=== PATIENT | male | born 1955 | race Caucasian/White ===

== ENCOUNTER 2016-11-12 07:36 | Day surgery (SDC) | payer BC ==
[2016-11-12] MEDS ORDERED: DEXAMETHASONE PRESERVATIVE FREE 10MG/ML VIAL IV ONE (12:14)
[2016-11-12] MEDS ORDERED: LIDOCAINE 1% W/EPI 1:200,000 MPF 30ML SQ ONE (12:14)
[2016-11-12] MEDS ORDERED: BUPIVACAINE 0.5% W/EPI MPF 30 ML VIAL IVP ONE (12:14)
[2016-11-12] MEDS ORDERED: PROPOFOL 10 MG/ML VIAL IV ONE (14:57)
[2016-11-12] MEDS ORDERED: FENTANYL PF 100MCG/2ML VIAL IV ONE (14:57)
[2016-11-12] MEDS ORDERED: *PACU ONLY* KETAMINE HCL 10 MG/ML (20ML) VIAL IV ONE (14:57)
[2016-11-12] MEDS ORDERED: MIDAZOLAM HCL 2MG/2ML VIAL IV ONE (14:57)
--- NOTE | 2016-11-13 15:17 | Operative Note - Ferro ---
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 OPERATION: RADIOFREQUENCY RHIZOTOMY LEFT CERVICAL FACETS 1/2, 2/3, AND 3 /4. SURGEON: FRANKY ROMERO D.O. ANESTHESIA: LOCAL SEDATION. ANESTHESIA PROVIDER: CELE TELLO CRNA. INDICATION: This patient presents with head and neck pain. Examination shows tenderness in the cervical spine. Range of motion causing pain in the neck with extension. Diagnostics show multiple levels of spondylosis. A facet and rhizotomy series has resulted in extensive pain control. He is here for repeat rhizotomy. PROCEDURE: Intravenous line, vital sign monitoring, IV sedation, prepped, draped, sterile technique. The cervical facet levels at 1/2, 2/3, and 3/4 on the left were marked, infiltrated, and a 22-gauge rhizotomy cannula positioned. Stimulation trials conducted. Rhizotomy burn performed. Local with anti- inflammatory into the sites. Topical antibiotics. Sterile dressing applied. We will monitor and evaluate. FRANKY ROMERO D.O. Date & Time cc: Dr. Thomson JOB NUMBER: [id number] [facility]
== END 2016-11-12 09:48 | disposition home or self-care (01) ==
LOC: SUR 07:36
PROVIDERS: ATTEND Pain Medicine Interventional Pain Medicine
DX: M47.812 Spondylosis without myelopathy or radiculopathy, cervical region (principal)
CPT/HCPCS: 64633; 64634 ×2; 01936; J1100; J3010

== ENCOUNTER 2017-05-13 08:55 | Day surgery (SDC) | payer BC ==
--- NOTE | 2017-05-13 06:41 | History and Physical Report ---
DATE: 05/12/2017. CHIEF COMPLAINT AND HISTORY OF CHIEF COMPLAINT: This patient presents with a history of occipital headaches unresponsive to all conservative therapies. He is here for a trial of peripheral nerve stimulation of the occipitals to determine if the implantation can be of any success. His trial will be a modified implanted trial. We will make incisions and anchor the system but externalize the leads for future generator placement if successful. PAST MEDICAL HISTORY: Asthmatic bronchitis. MEDICATIONS ON ADMISSION: To be provided. REVIEW OF SYSTEMS: The patient is appropriate and in no acute distress. The remainder of the systems review shows headaches, glasses, asthma, reflux. SOCIAL HISTORY: Smoking, caffeine. FAMILY HISTORY: Asthma, coronary artery disease, hypertension. SURGICAL HISTORY: To be provided. ALLERGIES: Environmental. PHYSICAL EXAMINATION: General: Height is 5 feet, 8 inches. Weight is 200 pounds. Vital Signs: Unavailable. HEENT: Within normal limits. Lungs: Clear. Heart: Regular rate and rhythm. Abdomen: Nontender. Musculoskeletal: Examination of the musculoskeletal system shows the primary pain to be headaches and running equally and symmetrically along the suboccipital rim, left and right, moving to the midline or occipital protuberance to the posterior auricular area. The findings are quite consistent with occipital neuralgia. Neurologic: Cranial nerves are intact. IMPRESSION: HEADACHES WITH OCCIPITAL NEURALGIA, ICD-10 CODE M54.81. PLAN: The patient is here for an implanted peripheral nerve stimulator trial to determine if a full implant can be effective in controlling his headaches along the suboccipital rim. The patient understands the risks, side effects, and potential complications. There will be an incision with the two leads anchored. If the trial is unsuccessful, the incision will need to be opened and the two leads removed. If successful, he will return in 10 to 14 days for removal of the external connections and diversion of the internal leads to a generator at the posterior gluteal margin. Potential risks and side effects have all been discussed and related in detail. The patient agrees and has consented. FRANKY ROMERO D.O. Date & Time JOB NUMBER: [id number] cc: Pradip Puente
[~2017-05-13 08:55] MED LIST: ACETAMINOPHEN 1,000 MG/100 ML BTL IV ONE; CEFAZOLIN 2 Gram 2 GM/50 ML BAG IVPB ONE; FAMOTIDINE 20MG TABLET PO ONE; MECLIZINE 25 MG TABLET PO ONE; METOCLOPRAMIDE 10 MG TABLET PO ONE
[2017-05-13] MEDS ORDERED: LABETALOL HCL 5MG/ML, 20ML VIAL IVPB ONE (15:12)
[2017-05-13] MEDS ORDERED: FENTANYL PF 100MCG/2ML VIAL IV ONE (15:12)
[2017-05-13] MEDS ORDERED: HYDROMORPHONE HCL 2 MG/ML VIAL IV ONE (15:12)
[2017-05-13] MEDS ORDERED: HYDRALAZINE 20MG/ML VIAL IV ONE (15:12)
[2017-05-13] MEDS ORDERED: MIDAZOLAM HCL 2MG/2ML VIAL IV ONE (15:12)
[2017-05-13] MEDS ORDERED: BUPIVACAINE 0.5% W/EPI MPF 30 ML VIAL IVP ONE (15:26)
[2017-05-13] MEDS ORDERED: LIDOCAINE 1% W/EPI 1:200,000 MPF 30ML SQ ONE (15:26)
[2017-05-13] MEDS ORDERED: CEFAZOLIN 1G VIAL IM ONE (15:26)
--- NOTE | 2017-05-13 16:47 | Operative Note - Ferro ---
DATE OF SURGERY: 05/13/17 PREOPERATIVE DIAGNOSIS: HEADACHES WITH OCCIPITAL NEURALGIA, ICD-10 CODE = M54.81. OPERATION: 1. FLUOROSCOPICALLY-GUIDED PLACEMENT OF LEFT PERIPHERAL NERVE STIMULATOR FOR CONTROL OF OCCIPITAL NERVE [employer] OCTAPOLAR 8 ELECTRODES INSERTED MIDLINE DIRECTED LEFT LATERAL SUBOCCIPITAL RIM. 2. FLUOROSCOPICALLY-GUIDED PLACEMENT OF RIGHT PERIPHERAL NERVE STIMULATOR FOR OCCIPITAL NERVE [employer] OCTAPOLAR WITH 8 ELECTRODES INSERTED MIDLINE DIRECTED RIGHT LATERAL SUBOCCIPITAL RIM. 3. COMPLEX PROGRAMMING LEAD 1 OVER 20 MINUTES FOLLOWED BY COMPLEX PROGRAMMING LEAD 2 OVER 20 MINUTES. 4. PURSESTRING SUTURE, BENZOIN, STERI-STRIPS, OPSITE SECURING EXTERNAL PORTION OF LEADS TO THE PATIENT'S NECK. 6. COMPLEX PROGRAMMING RECOVERY ROOM TWO PERIPHERAL NERVE STIMULATORS, 20 MINUTES. SURGEON: FRANKY ROMERO D.O. ANESTHESIA: LOCAL SEDATION. ANESTHESIA PROVIDER: WALKER HILL CRNA. INDICATION: This patient presents with intractable headaches of the occipital nervous system to the back and upper side of his head. He is here for a peripheral nerve stimulator trial for the occipital nerve to determine if the implantation of a permanent system can be of any value in pain control. PROCEDURE: Intravenous line, vital sign monitoring, IV sedation, prepped and draped in sterile technique. Patient position prone. Sterile prep. Sterile technique. At the midline, skin infiltrated then two curved epidural needles under imaging were inserted subcutaneously and directed first to left curving across and along the suboccipital rim towards the left mastoid. A second curved epidural needle was then positioned inserting at the midline below the first insertion curved along subcutaneous tissues right along the suboccipital rim. On the left, peripheral nerve stimulator lead 1, a [employer] Octapolar with 8 electrodes, was inserted through the needle and needle removed. With the needle directed to the right, a second [employer] Octapolar with 8 electrodes was inserted through the needle, the needle removed with the lead remaining subcutaneously along the suboccipital rim. Complex programming of lead 1 over 20 minutes followed by complex programming of lead 2 over 20 minutes ultimately resulting in patterns of stimulation into the occipital nervous system, which is moving along the posterior left and right quadrants of the occipital region; patient indicating we had the occipital component but not the upper component of his headaches. Skin infiltrated then a pursestring suture of nylon was used to secure each of the two leads to patient's skin. Benzoin, Steri-Strips, and OPSITE dressing was then used to secure the leads to patient's back of head. He was then transported to the Recovery Room stable showing no side-effects from the procedure or the sedation. In the Recovery Room , complex programming over 20 minutes performed re-establishing stimulation and pain control to all of the appropriate areas. The patient was instructed on the use of the system, for the information error messaging, and prepared for discharge. DISCHARGE INSTRUCTIONS IN THE MORNIN. The sites to remain clean and dry. No showering or bathing in any way that would disrupt dressings. If it happens, contact the clinic. 2. Standard medications resumed, including Levaquin, the antibiotic, 500 mg once a day for 14 days. 3. The trial will run seven days. During this period of time, we will evaluate pain control relative to his headaches. At the end of the seven day period, if successful, the trial leads removed and he will be scheduled for permanent implant. He should analgesics to more fully evaluate the system and its ability to control his headaches. All other instructions were provided, numbers to contact, problems given. He will be seen in the office for reprogramming. cc: Dr. Thomson JOB NUMBER: [id number] MTDD
--- NOTE | 2017-05-14 07:33 | RADIOLOGY REPORT ---
EXAM: CERVICAL SPINE HISTORY: STIMULATOR PLACEMENT. TECHNIQUE: A single portable supine view of the cervical spine was performed. FINDINGS: Stimulator device projects over the cervical spine and lead tips appear to be below the skull base. IMPRESSION: STIMULATOR DEVICE PROJECTS OVER THE CERVICAL SPINE. LEAD TIPS APPEAR TO BE OVERLYING THE SKULL BASE. JOB NUMBER: [id number] MTDD
== END 2017-05-13 14:00 | disposition home or self-care (01) ==
LOC: SUR 08:55
PROVIDERS: ATTEND Pain Medicine Interventional Pain Medicine
DX: M54.81 Occipital neuralgia (principal); F17.200 Nicotine dependence, unspecified, uncomplicated; J45.909 Unspecified asthma, uncomplicated
CPT/HCPCS: 64555; 64575; 00300; 72020; J3010; J1170; J0690

== ENCOUNTER 2017-05-27 10:57 | Day surgery (SDC) | payer BC ==
--- NOTE | 2017-05-27 06:55 | History and Physical Report ---
DATE: 05/27/2017. CHIEF COMPLAINT AND HISTORY OF CHIEF COMPLAINT: This patient presents with a history of an intractable occipital headache pattern. On 05/13/2017 a peripheral nerve stimulator trial was performed to control the occipital nerve tracts with greater than 75 percent pain control of the headache. Due to the failure of all therapy, he is here by his request for implantation of a permanent system. PAST MEDICAL HISTORY: Intractable headaches, asthmatic bronchitis. PAST SURGICAL HISTORY: To be provided. MEDICATIONS ON ADMISSION: To be provided. ALLERGIES: Environmental. Although she has sensitivities to codeine, Percocet , and Vicodin. REVIEW OF SYSTEMS: The patient is appropriate and in no acute distress. The remainder of the systems review shows headaches, glasses, asthma, reflux. SOCIAL HISTORY: Smoking, caffeine. FAMILY HISTORY: Asthma, coronary artery disease, hypertension. PHYSICAL EXAMINATION: General: Height is 5 feet, 8 inches. Weight is 220 pounds. Vital Signs: Not available. HEENT: Within normal limits. Lungs: Clear. Heart: Regular rate and rhythm. Abdomen: Nontender. Musculoskeletal: Examination of the musculoskeletal system shows the area of headaches to start at the suboccipital rim and extend toward the auricular regions laterally and toward the superior aspect of the head. Sensory ferreira are intact. Neurologic: Cranial nerves are intact. IMPRESSION: OCCIPITAL NEURALGIA WITH HEADACHES, ICD-10 CODE M54.81. PLAN: This patient is here for permanent implantation of a peripheral nerve stimulator based upon a successful trial. The potential risks, side effects, and complications have been carefully reviewed and discussed including infections and failure. The patient understands and agrees. The procedure will be considered outpatient, although an overnight stay will be evaluated. FRANKY ROMERO D.O. Date & Time JOB NUMBER: [id number] cc: Pradip Puente
[2017-05-27] MEDS ORDERED: BUPIVACAINE 0.5% W/EPI MPF 30 ML VIAL IVP ONE (14:00)
[2017-05-27] MEDS ORDERED: LIDOCAINE 1% W/EPI 1:200,000 MPF 30ML SQ ONE (14:00)
[2017-05-27] MEDS ORDERED: CEFAZOLIN 1G VIAL IM ONE (14:00)
[2017-05-27] MEDS ORDERED: ACETAMINOPHEN 325 MG TAB PO PRN ×2 (16:06)
[2017-05-27] MEDS ORDERED: HYDROMORPHONE HCL 2 MG/ML VIAL IM PRN (16:06)
[2017-05-27] MEDS ORDERED: AL HYDROX/MAG HYDROX 30ML UD PO PRN (16:06)
[2017-05-27] MEDS ORDERED: METOCLOPRAMIDE 10 MG TABLET PO PRN (16:06)
[2017-05-27] MEDS ORDERED: METOCLOPRAMIDE HCL 10 MG/2 ML VIAL IVP PRN (16:06)
[2017-05-27] MEDS ORDERED: DIPHENHYDRAMINE HCL 25 MG CAPSULE PO PRN ×2 (16:06)
[2017-05-27] MEDS ORDERED: DIPHENHYDRAMINE HCL IV 50 MG/ML VIAL IVP PRN ×2 (16:06)
[2017-05-27] MEDS ORDERED: TEMAZEPAM 15 MG CAPSULE PO PRN ×2 (16:06)
[2017-05-27] MEDS ORDERED: HYDROCODONE/APAP 7.5/325MG TABLET PO PRN ×2 (16:06)
[2017-05-27] MEDS ORDERED: SENNOSIDES/DOCUSATE SODIUM UD CAPSULE PO PRN ×2 (16:06)
[2017-05-27] MEDS ORDERED: HYDROMORPHONE HCL 1 MG/ML CPJ IM PRN (16:06)
[2017-05-27] MEDS ORDERED: LIDOCAINE 2% MDV (20MG/ML) 20ML VIAL IV ONE (16:28)
[2017-05-27] MEDS ORDERED: MIDAZOLAM HCL 2MG/2ML VIAL IV ONE (16:28)
[2017-05-27] MEDS ORDERED: FENTANYL PF 100MCG/2ML VIAL IV ONE (16:28)
[2017-05-27] MEDS ORDERED: PROPOFOL 10 MG/ML VIAL IV ONE (16:28)
[2017-05-27] MEDS ORDERED: CEFAZOLIN 2 Gram 2 GM/50 ML BAG IVPB SCH (21:30)
[2017-05-27] MEDS ORDERED: 0.9 % SODIUM CHLORIDE 10ML SYR IVP SCH (22:00)
--- NOTE | 2017-05-28 08:13 | Operative Note - Ferro ---
DATE OF SURGERY: 05/27/2017. PREOPERATIVE DIAGNOSIS: OCCIPITAL NEURALGIA WITH HEADACHES, ICD-10 CODE M54.81. POSTOPERATIVE DIAGNOSIS: OCCIPITAL NEURALGIA WITH HEADACHES, ICD-10 CODE M54.81. OPERATION: 1. Fluoroscopically guided placement of left peripheral nerve stimulator for occipital nerve lead 1, [employer] Octapolar with 8 electrodes positioned left oblique to the suboccipital rim. 2. Fluoroscopically guided placement of right peripheral nerve stimulator for occipital nerve lead 2, [employer] Octapolar with 8 electrodes positioned right oblique to the suboccipital rim. 3. Complex programming of peripheral nerve stimulator lead 1 for 20 minutes. Complex programming of peripheral nerve stimulator lead 2 for 20 minutes. 4. Incision, subcutaneous dissection, and anchoring of lead 1 and lead 2 to the supraspinous and posterior cervical fascia. 5. Incision, subcutaneous dissection, and creation of subcutaneous pouch at right flank above the belt line, a site picked by the patient. 6. Tunneling between cervical posterior incision and posterior gluteal flank incision with intermediate incision. Placement of lead 1 and lead 2 into flank pouch, each lead interfaced directly to the generator identified as a [employer] programmable rechargeable internal pulse generator. 7. Securing generator to posterior fascia using nonabsorbable suture and closure of all incisions with Vicryl to the fascia and subcuticular Vicryl for the skin. Dermabond closure. 8. Complex programming of the internal generator to peripheral stimulators use for home for 20 minutes. SURGEON: Mike Jon D.O. ANESTHESIA: Local sedation. ANESTHESIA PROVIDER: Phillip Lopez CRNA INDICATION: This patient presents with a history of intractable headaches considered to be related to the occipital nerve. A peripheral nerve stimulator trial resulted in 75 to 80 percent control of headaches. Due to the failure of all therapies and the success of the peripheral nerve stimulator trial in controlling the occipital nervous system, he is here for permanent implant. PROCEDURE: Intravenous line, vital sign monitoring, and intravenous sedation by Anesthesia. The patient was positioned prone. Sterile prep, sterile technique, and under imaging. Consistent with the trial, the skin along the mid posterior cervical spine was infiltrated. An incision was made and subcutaneous dissection was conducted to the supraspinous fascia and the deep cervical spine fascia. Two curved epidural needles were positioned subcutaneously, directed by an oblique angle to the suboccipital rim and slightly lateral toward the mastoid, one left and one right. On the left, a [employer] peripheral nerve stimulator Octapolar with 8 electrodes was positioned through the needle and directed along the suboccipital rim, first left and then a [employer] lead 2, also an Octapolar with 8 electrodes, was positioned right by an oblique angle along the suboccipital rim. Complex programming after the needles were removed of lead 1 over 20 minutes and of lead 2 over 20 minutes. This resulted in patterns of stimulation across the patient's occipital region, auricular region toward the ears, and then moving up to the top of his head. The patient indicated we were in the areas of his pain. He was given the options to implant or continue to program and remove. He opted to implant. He was resedated and then each lead was anchored to the supraspinous fascia or deep cervical fascia with a nonabsorbable suture at three points for each lead. At the right flank, a site picked by the patient for the generator, the skin was infiltrated. An incision was made and subcutaneous dissection was conducted to perform a pouch of suitable size and depth for the generator, a [employer] programmable rechargeable. A tunneling tool was then used to connect two incisional sites with an intermediate incision at the upper thoracic spine. The tunneling tool was then used to carry both leads into the generator pouch, and then each lead was directly interfaced to the generator, a [employer] programmable rechargeable. Antibiotic irrigation and Bovie for hemostasis. The generator was then placed into the pouch and secured to the posterior fascia with nonabsorbable suture. The incisions were then closed with Vicryl to the fascia and running subcuticular Vicryl for the skin. A Dermabond closure was placed. He was transported to the recovery room stable, showing no side effects from the procedure or the sedation. When fully awake and alert, complex programming of the leads was then performed over 20 minutes, re-establishing stimulation of pain control to all of the appropriate areas. He was instructed on use of the system and was provided with information. He was then prepared for discharge. DISCHARGE INSTRUCTIONS: 1. The site is to remain clean and dry. No showering or bathing in any way that would disrupt dressings. If it happens, contact the clinic. 2. Standard medications to be resumed including Levaquin the antibiotic 500 mg once a day for 14 days. 3. He will be seen in the office in five to seven days to evaluate the incisions. Until then activities should stay low. 4. All other instructions were provided. Numbers to contact and possible problems were given. At that point, he will be discharged. MIKE JON D.O. Date & Time JOB NUMBER: [id number] cc: Pradip Puente
--- NOTE | 2017-05-29 09:09 | RADIOLOGY REPORT ---
EXAM: CERVICAL SPINE, SINGLE VIEW HISTORY: POSTOP. TECHNIQUE: A single portable view of the cervical spine was obtained. Comparison: None. Encounter: Initial. FINDINGS: There is a stimulating device projecting over the right lower quadrant. There are two stimulating wires with the proximal tips extending superiorly, projecting on the frontal view over the maxillary sinuses. IMPRESSION: POST SURGICAL CHANGE ABOVE. CORRELATE WITH INTRAOPERATIVE FINDINGS. JOB NUMBER: [id number] MTDD
== END 2017-05-27 18:15 | disposition home or self-care (01) ==
LOC: SUR 10:57 → MEDSURG 16:13 → SUR 18:15
PROVIDERS: ATTEND Pain Medicine Interventional Pain Medicine
DX: M54.81 Occipital neuralgia (principal); I10 Essential (primary) hypertension; J45.909 Unspecified asthma, uncomplicated; F17.200 Nicotine dependence, unspecified, uncomplicated
CPT/HCPCS: 64555; 64590; 00300; 95972; 72020; J3010; J0690